=== PATIENT | female | born 1955 | race Caucasian/White ===

== ENCOUNTER → 2017-07-02 | Outpatient (CLI) | payer MEDICARE, BC | END | disposition home or self-care (01) | LOC: KCIC MRI 11:41 | DX: M48.02 Spinal stenosis, cervical region (principal) | CPT/HCPCS: 72141 ==

== ENCOUNTER → 2021-02-08 | Outpatient (CLI) | payer MEDICARE, BC ==
--- NOTE | 2021-02-08 17:01 | KCIC ---
STUDY: CT of the left lower extremity without contrast INDICATION: Left knee effusion after a fall reportedly on 12/18/2020. Pain and swelling. COMPARISON: None recently. TECHNIQUE: Axial CT imaging of the left lower extremity performed without contrast. Coronal and sagit shelby reformats were obtained. One or more of the following individualized dose reduction techniques were utilized for this examinat ion: 1. Automated exposure control 2. Adjustment of the mA and/or kV according to patient size 3. Use of iterative reconstruction technique. FINDINGS: Bones: Mild concavity along the lateral margin of the tibial eminence laterally, such as on image 19 series 603 and image 13 series 602, without a discrete fracture line to indicate this relates to traumatic i mpaction. The patella is intact. Mild nontraumatic lateral patellar subluxation. Collectively no defi nitive fracture at the knee no advanced arthrosis. Minimal quadriceps insertion enthesophyte formatio n. Soft tissues: No significant joint effusion. Lobulated, intermediate density fluid superficial to the patellar tend on with surrounding subcutaneous edema measuring approximately 2.2 cm AP by 2.5 cm transverse by 4.8 cm craniocaudal. The PCL remains intact. Incomplete assessment of the ACL and menisci. The extensor m echanism is intact. No soft tissue sequela of trauma at the popliteal fossa. Mild vascular calcificat ions. IMPRESSION: 1. Fluid collection superficial to the patellar tendon measuring 2.2 x 2.5 x 4.8 cm either a degrade d hematoma or hemolymphatic collection from Dahl-Lisandro degloving injury. 2. No fracture is apparent or knee joint effusion to suggest otherwise. Intact extensor mechanism. Electronically signed by: DUY OBRIEN MD (02/08/2021 4:58 PM) [id number]
== END ==
LOC: KCIC CT 11:32
PROVIDERS: ATTEND Internal Medicine
DX: S83.012A Lateral subluxation of left patella, initial encounter (principal); M25.862 Other specified joint disorders, left knee; M25.462 Effusion, left knee; W19.XXXA Unspecified fall, initial encounter; Y93.89 Activity, other specified; Y92.89 Other specified places as the place of occurrence of the external cause
CPT/HCPCS: 73700

== ENCOUNTER → 2021-04-18 | Outpatient (CLI) | payer MEDICARE, BC ==
--- NOTE | 2021-04-18 16:37 | KCIC ---
MR LUMBAR SPINE WO [id number] Date: 04/18/2021 12:30 PM Indication: LUMBAR MYELOPATHY. Fall last November with new lower back pain. Comparison: 04/28/2015. Technique: Multi-planar multi-weighted magnetic resonance imaging of the lumbar spine was performed w ithout intravenous contrast using the standard lumbar spine protocol. FINDINGS: T12 compression deformity with 40 percent loss of vertebral body height and postsurgical changes of v ertebral augmentation. Mild chronic height loss also noted at L2 and L3. The lumbar spine is normally aligned. Mild multilevel degenerative disc desiccation and disc height l oss, moderate at L5-S1. No marrow replacing process to suggest malignancy. The conus terminates at a normal level. No abnormal signal is seen within the visualized distal spina l cord. No clumping of intrathecal nerve roots. Sacral Tarlov cysts. No soft tissue abnormality in the visualized abdomen or pelvis. T12-L1: Disc bulge. Mild facet arthropathy. No significant spinal stenosis or neural foraminal narrow ing. L1-L2: Disc bulge. Mild facet arthropathy. No significant spinal stenosis or neural foraminal narrowi ng. L2-L3: Disc bulge. Mild facet arthropathy. No significant spinal stenosis or neural foraminal narrowi ng. L3-L4: Disc bulge. Mild facet arthropathy. No significant spinal stenosis. Mild bilateral neural fora naman narrowing. L4-L5: Left hemilaminectomy. Mild facet arthropathy. No significant spinal stenosis. Mild right neura l foraminal narrowing. L5-S1: Disc bulge with far lateral protrusions. Mild facet arthropathy. No significant spinal stenosi s. Mild bilateral neural foraminal narrowing. IMPRESSION: 1. Mild lumbar spondylosis. 2. Chronic compression deformities at T12, L2, and L3 with postsurgical changes of vertebral augmenta tion at T12. Electronically signed by: Ricky Bishop MD (04/18/2021 4:35 PM) [id number]
== END ==
LOC: KCIC MRI 12:18
PROVIDERS: ATTEND Internal Medicine
DX: M47.16 Other spondylosis with myelopathy, lumbar region (principal); M43.8X5 Other specified deforming dorsopathies, thoracolumbar region; M51.27 Other intervertebral disc displacement, lumbosacral region; M48.8X7 Other specified spondylopathies, lumbosacral region; M48.07 Spinal stenosis, lumbosacral region; G96.191 Perineural cyst; M51.34 Other intervertebral disc degeneration, thoracic region
CPT/HCPCS: 72148